=== PATIENT | male | born 1955 | race Caucasian/White ===

== ENCOUNTER → 2017-12-01 | Outpatient (CLI) | payer OTHER ==
[~2017-12-01] VITALS: Ht 182.9 cm; Wt 91.4 kg
[~2017-12-01] MED LIST: CARDIZEM CD240 MG PO; COZAAR 50 MG TA50 M2 PO; CRESTOR10 MG PO; FLECAINIDE ACET50 M1 PO; FLOMAX0.4 MG PO; GABAPENTIN 100100 MG PO; GABAPENTIN100 MG PO; KLOR-CON 1010 MEQ PO; MEDROL DOSPAK21 TAB PO; PREDNISONE 20 M20 MG PO; TRAMADOL 50 MG50 MG PO; XARELTO20 MG PO
--- NOTE | ~2017-12-01 | HPC ---
[facility] [place] [address] PAIN MANAGEMENT CONSULTATION Name: MICHELE ZAPIEN JR Room #: REG [facility].#: [id number] Admission: 12/01/17 Attend Phys: Alden Vo MD Discharge: Date of : 51 Report #: [id number] THIS REPORT FOR: //name// CC: Gato Vo DATE OF SERVICE: 12/01/2017 CHIEF COMPLAINT: Acute onset of left lumbar radiculopathy. HISTORY OF PRESENT ILLNESS: This is a patient who was last seen in our clinic over 2 years ago. He responded beautifully to an epidural steroid injection performed for right lumbar radiculopathy. At that time, he showed disk extrusion at L3-L4 that was consistent with his findings. Today, he is here with about a 1-month history of back pain that begins in the lumbosacral region, radiates to the left hip and now follows the L3-L4, L4-L5 distribution into the left leg. He has noticed pain with sitting and with sleeping at night. He is ambulating with some antalgic features and has noticed that the pain at times can be intense. He has, however, remained active with functional exercise continuing with guarding and other issues. 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 Saw Dr. Oswald, who provided him with tramadol, gabapentin, and a prednisone burst and he has been taking 20 mg once a day. Tramadol has been helpful as well as gabapentin at low dose 100-200 mg t.i.d. MEDICATIONS: Include Tambocor, prednisone, Neurontin, tramadol, Flomax, Crestor, Klor-Con, Cozaar, Cardizem, Xarelto. ALLERGIES: None. PAST MEDICAL HISTORY: Positive for atrial fibrillation. He has been treated with number of medicines and is under the care of Dr. Fracisco Yun at the [facility] at . He takes Xarelto because of intermittent atrial fibrillation. He has been in sinus rhythm for some time. I have asked him to discuss with Dr. Yun about discontinuing his Xarelto for 3 days in anticipation of an epidural injection. Has some osteoarthritis involving the knee. PAST SURGICAL HISTORY: Include tonsillectomy in 1954, appendectomy in 1965. SOCIAL HISTORY: Denies use of tobacco. [place] drinks [place] [address] PAIN MANAGEMENT CONSULTATION Name: MICHELE ZAPIEN Room #: REG [facility]#: [id number] Admission: 12/01/17 Attend Phys: Alden Vo MD Discharge: Date of : 51 Report #: [id number] once or twice daily. He is an director life insurance. PHYSICAL EXAMINATION: Pleasant, alert and oriented, well groomed, well dressed. His blood pressure is 106/84, heart rate 75, respirations 16. BMI is 27.3. He is able to move from sitting to standing independently without the use of his arms. He has ability to ambulate, but has a slight antalgic gait. He has pain across his low back pain. Forward flexion and extension. Straight leg raising on the right. He has negative straight leg raising on the left and the sitting and supine position reproduces pain in the L4-L5 distribution and L5-S1. Sensation is intact. No focal weakness. Deep tendon reflexes are 2+ knees and ankles. MRI scan is reviewed from 2 years ago and I would like to avoid getting another study if we can. It all depends on how he responds to an epidural injection. IMPRESSION: Low back pain with radiculopathy. PLAN: I will stop his Xarelto off. We will get a preauthorization from his insurance company and bring him back in clinic in 72 hours for an epidural. I have asked him to utilize tramadol and gabapentin sparingly as needed for pain and I have given him 2 new prescriptions. He would like to avoid medication and that is certainly one of the goals of this treatment with the epidural. We talked about the importance of exercise once again. May require a course of physical therapy. By: [id number] Alden Vo MD /nt
[2017-12-01 14:38] VITALS: BP 106/84
== END ==
LOC: PAIN 07:40
DX: M54.5 Low back pain (principal); M54.16 Radiculopathy, lumbar region

== ENCOUNTER → 2017-12-04 | Outpatient (CLI) | payer OTHER ==
[~2017-12-04] VITALS: Ht 182.9 cm; Wt 89.8 kg
--- NOTE | ~2017-12-04 | HPC ---
[facility] [place] [address] PAIN MANAGEMENT CONSULTATION Name: MICHELE ZAPIEN Room #: REG [facility]#: [id number] Admission: 12/04/17 Attend Phys: Alden Vo MD Discharge: Date of : 51 Report #: [id number] THIS REPORT FOR: //name// CC: Gato DAHL MD DATE OF SERVICE: 12/04/2017 The patient returns today for epidural steroid injection. He has been off his Xarelto now for over 72 hours. Please refer to dictation from earlier this week. Pain is on the left, follows in the L5 distribution. MRI shows disk injury at L4-L5 and he was treated previously for symptoms that were on the right. His pain today is bilateral, but mostly on the left. There have been no changes over the last couple of days, except the discontinuation of his blood thinner. Pain intensity is 9/10. PHYSICAL EXAMINATION: VITAL SIGNS: Blood pressure is 147/78, heart rate 63, respirations 18. EXTREMITIES: Antalgic gait. Positive straight leg raising on the left is noted. IMPRESSION: Lumbar radiculopathy, L4, L5 and S1 on the left, related to an L4-L5 disk protrusion documented by MRI. PROCEDURE: Epidural steroid injection, L4-L5, left paramedian under fluoroscopic guidance. DESCRIPTION OF PROCEDURE: Skin was prepped with ChloraPrep. Skin anesthetized over L4-L5. A 20-gauge Tuohy epidural needle was advanced in the epidural space using loss of resistance technique. There was no blood or CSF aspirated. A 1 mL of Omnipaque demonstrated excellent spread along the lateral recess. It was then followed by 3 mL of 0.5% lidocaine mixed with 80 mg of triamcinolone. He tolerated the procedure well, was observed for 45 minutes and discharged. Follow up with the pain clinic on an as-needed basis. By: [id number] Alden Vo MD /nt
[2017-12-04 08:56] VITALS: BP 147/78
== END | disposition home or self-care (01) ==
LOC: PAIN 06:44
DX: M54.16 Radiculopathy, lumbar region (principal); G89.29 Other chronic pain; Z79.899 Other long term (current) drug therapy

== ENCOUNTER → 2017-12-25 | Outpatient (CLI) | payer OTHER ==
[~2017-12-25] VITALS: Ht 182.9 cm; Wt 90.0 kg
--- NOTE | ~2017-12-25 | HPC ---
[facility] [address] [address] [place] [address] PAIN MANAGEMENT CONSULTATION Name: MICHELE ZAPIEN JR Room #: REG [facility].#: [id number] Admission: 12/25/17 Attend Phys: Alden Vo MD Discharge: Date of : 51 Report #: [id number] THIS REPORT FOR: //name// CC: Gato Vo DATE OF SERVICE: 12/25/2017 HISTORY OF PRESENT ILLNESS: Followup visit for persistent left low back pain with radiation through the left leg to the anterior lateral thigh with numbness. The patient returns to pain clinic today after an epidural injection performed in a left paramedian position at L4-L5. I have reviewed the injection, shows excellent spread of dye along the lateral recess. It covered the L4, L3 and L5 nerve roots very effectively. We have an old MRI showing a disk protrusion at L4-L5. I would expect this injection to at least provide some temporary relief, which it did not. He is here today for further considerations. His pain is worse with sitting. Driving is particularly difficult. He describes it as a charley horse sensation in his leg and in his midback. Numbness is a persistent complaint and the numbness extends only to the lateral thigh, but no further. He has some tramadol, but has been reluctant to take it. He is also on tramadol. He discontinued it in anticipation of a possible injection today, but we discussed whether or not we had a good idea of where we would inject him. I have some diagnostic considerations. PHYSICAL EXAMINATION: GENERAL: He is a pleasant, alert and oriented. He moves easily from sitting to standing position. There are no obvious antalgic features to his gait. VITAL SIGNS: His blood pressure 126/70, heart rate 62. His BMI is 26.9. MUSCULOSKELETAL: He has no pain with range of motion of the lumbar spine. Golf swing is performed without too much discomfort. He has tenderness along his iliac crest and above, but not along the spine. There is no spinal pain with extension. Straight leg raising is negative at this time for radicular pain. Internal and external rotations of the hip are performed without discomfort. Deep tendon reflexes are symmetrical bilaterally at the knees and ankles with no evidence of hyper or hyporeflexia. Sensation to pinprick is diminished in the lateral cutaneous nerve distribution of the thigh. There is no focal weakness. IMPRESSION: Low back pain with radiation through the left hip into the lateral thigh with numbness. [address] [address] PAIN MANAGEMENT CONSULTATION Name: MICHELE ZAPIEN Room #: REG [facility]#: [id number] Admission: 12/25/17 Attend Phys: Alden Vo MD Discharge: Date of : 51 Report #: [id number] Diagnostic considerations include lumbar radiculopathy, possible hip arthropathy and I have also now raised the possibility of meralgia paresthetica. He does have numbness without weakness and pain along the lateral thigh associated with sitting, particularly with riding in a car. Perhaps it is the seatbelt of the car that causes this pain, I am not sure if there is an entrapment syndrome there. Diagnostic injection of the lateral femoral cutaneous nerves consider today. We have decided to proceed first with another MRI of his lumbar spine and an MRI including the pelvis. He has lumbar radiculopathy, worsening with a disk bulge previously at L4-L5. Followup visit is planned after reports of the MRI. I will add him on for an injection on 01/08, but we need a precertification. I cannot precert him precisely at this time for an epidural injection and would consider the possibility of a lateral femoral cutaneous nerve block or a hip injection depending on our MRI responses. A 25-minute consultation. By: [id number] Alden Vo MD /nt
[2017-12-25 10:11] VITALS: BP 126/70
== END ==
LOC: PAIN 07:05
DX: M54.16 Radiculopathy, lumbar region (principal); M54.5 Low back pain; M25.552 Pain in left hip; R20.0 Anesthesia of skin

== ENCOUNTER → 2018-01-01 | Outpatient (CLI) | payer OTHER | LOC: MRI 08:24 | DX: S33.5XXA Sprain of ligaments of lumbar spine, initial encounter (principal); M48.062 Spinal stenosis, lumbar region with neurogenic claudication; X58.XXXA Exposure to other specified factors, initial encounter; Y93.89 Activity, other specified; Y92.89 Other specified places as the place of occurrence of the external cause; Y99.8 Other external cause status ==

== ENCOUNTER → 2018-01-08 | Outpatient (CLI) | payer OTHER ==
[~2018-01-08] VITALS: Ht 182.9 cm; Wt 89.5 kg
--- NOTE | ~2018-01-08 | HPC ---
[facility] [place] [address] PAIN MANAGEMENT CONSULTATION Name: MICHELE ZAPIEN Room #: REG [facility].#: [id number] Admission: 01/08/18 Attend Phys: Alden Vo MD Discharge: Date of : 51 Report #: [id number] THIS REPORT FOR: //name// CC: Fortunato Vo DATE OF SERVICE: 01/08/2018 Followup visit for lumbar radiculopathy. The patient returns to the Pain Clinic today having symptoms mostly in the L4-L5 distribution. An MRI scan that I obtained showed that there is a focal disk protrusion on the ipsilateral side at L2-L3 impinging upon the L2 nerve root. There is also evidence that this extends into the lateral recess. I have injected him previously, but I have injected him much lower at L4-L5. I have told him that today, I would like to inject him at the level of the offending disk and see if this provides better relief. He had planned on taking a trip, but this has been canceled due to a sudden arrest of his [id number], who is still in the hospital. PHYSICAL EXAMINATION: Shows blood pressure of 142/72, heart rate 58, respirations 16. Small antalgic gait. Positive straight leg raising noted on the left in the distribution of L4. IMPRESSION: Low back pain with radiculopathy. Old MRI showed a disk protrusion at L4-L5, but now there seems to be more prominent disk at the L2-L3 level on the ipsilateral side. RECOMMENDATION: Epidural steroid injection L2-L3 under fluoroscopic guidance. PROCEDURE: He was taken to fluoroscopic suite, placed prone. Skin prepped with ChloraPrep. Skin anesthetized over the L2-L3 interspace. A 20-gauge Tuohy epidural needle advanced first attempt in the epidural space with loss of resistance technique. There was no blood or CSF aspirated. 1 mL of Omnipaque injected with nice spread of dye observed along the left lateral recess. It was then followed by 3 mL of 0.5% lidocaine mixed with 80 mg of triamcinolone. He tolerated the procedure well, was observed for 45 minutes, and followup visit is planned as needed. By: [id number] Alden Vo MD /nt
[2018-01-08 08:57] VITALS: BP 142/72
== END | disposition home or self-care (01) ==
LOC: PAIN 06:08
DX: M54.16 Radiculopathy, lumbar region (principal); G89.29 Other chronic pain; Z79.899 Other long term (current) drug therapy

== ENCOUNTER → 2018-11-09 | Outpatient (CLI) | payer OTHER ==
[~2018-11-09] VITALS: Ht 185.4 cm; Wt 90.8 kg
[~2018-11-09] MED LIST changes: +COQ-10100 MG PO; +LOSARTAN POTASS50 MG PO
--- NOTE | ~2018-11-09 | HPC ---
[facility] [place] [address] PAIN MANAGEMENT CONSULTATION Name: MICHELE ZAPIEN JR Room #: REG [facility].#: [id number] Admission: 11/09/18 ������������������ Attend Phys: Alden Vo MD Discharge: ������������������ Date of : 51 Report #: [id number] THIS REPORT FOR: //name// CC: Fortunato Vo DATE OF SERVICE: 11/09/2018 REASON FOR VISIT: A 25-minute consultation visit with followup for persistent and recurring right hip pain. HISTORY OF PRESENT ILLNESS: The patient returns to the pain clinic today complaining of pain in the right hip. The pain is different than previous pains, which have been more radicular in description. He has had pain on the left, which has responded nicely to injection. This current pain is right-sided and well localized in the upper gluteal region. He describes it as sharp, stabbing pain. At times, it is so severe that he can barely move. He scores it as a 7/10. It is episodic and definitely related to activity. He has found that ibuprofen is helpful, but he is not allowed to take it on a regular basis due to concurrent use with Xarelto. He has tried some [place] massage and found it to be temporarily helpful. CURRENT MEDICATIONS: Gabapentin 100 mg 3 times daily, tramadol 3 times daily p.r.n., flecainide, tamsulosin, rosuvastatin, losartan, diltiazem and Xarelto for history of atrial fibrillation. ALLERGIES: None. PHYSICAL EXAMINATION: He is 6 feet 1 inch, weight 200 pounds and BMI of 26.4. Blood pressure 134/79, heart rate 62 and respirations 16. He moves easily from sitting to standing position. His gait is mildly antalgic. He has localized tenderness in the upper gluteal region. He has pain with both internal and external rotation of the right hip. Straight leg raising is mildly positive, radiating pain also into the hip but not much further down into the leg. Strength and sensation are within normal limits bilaterally to the lower extremities. Deep tendon reflexes are 2+. RADIOLOGICAL DATA: X-rays have been reviewed, which demonstrate from the right hip moderate right hip degenerative osteoarthritis and a degenerative tear of the right anterior labral superior hip labrum. That x-ray was performed in 2014. Because of concerns of the right hip and pelvis I repeated an MRI in December of 2017. 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 There were also cystic changes along the labral acetabular junction bilaterally with paralabral cyst most [address] [address] PAIN MANAGEMENT CONSULTATION Name: MICHELE ZAPIEN Room #: REG [facility].#: [id number] Admission: 11/09/18 ������������������ Attend Phys: Alden Vo MD Discharge: ������������������ Date of : 51 Report #: [id number] prominent on the left contralateral side. He does not have pain on that side. There was minimal fluid noted along the dorsal subcutaneous tissues at the sacrococcygeal junction, felt to represent benign subcutaneous pressure fluid in that location. There were no findings of piriformis injury. No findings of soft tissue bursitis or acute injury around the hip itself. He has a focal disk protrusion at L2-L3 impinging upon the left L2 nerve root resulting in severe left neural foraminal stenosis. He was treated for lumbar radiculopathy of this location successfully in May. PLAN: I would like him to see Dr. Aguayo, his college and good friend. He can assess his x-rays and physical exam to see if he believes this may be hip related. We discussed his favorable response to nonsteroidal anti-inflammatory drug, which should suggest that this may be an arthropathy, which responds best to those medications. Because of his use of Xarelto for atrial fibrillation, he should be very cautious about using NSAID on a regular basis. I have given him a trial of Celebrex to be used on an intermittent p.r.n. basis as this may be somewhat safer than a traditional NSAID. A followup is scheduled after his referral to Dr. Aguayo. I will talk to Dr. Aguayo we can discuss whether or not a diagnostic hip injection may be helpful in determining next steps. There is some possibility that this could be radiculopathy as well. ��������������������������������������������� ���������������������������������������� By: ��������������������������������������������� [id number] [id number] Alden Vo MD /nt
[2018-11-09 09:12] VITALS: BP 134/79
--- NOTE | 2018-11-09 09:30 | NUR ---
Pain Clinic Assessment: 1. History of Osteoarthritis: NONE History of Rheumatoid Arthritis: NONE 2. Height: 6 ft. 1 in. 185.4 cm. Weight: 200.2 lb. oz. 90.810 kg. Patient's BMI: 26.4 3. Vital Signs: BP: 134/79 Pulse: 62 Resp: 16 Temp: 02 Sat: 100 ECG Mon: 4. Pain Intensity: 7-8 5. Fall Risk: Dizziness: N Needs help standing or walking: N Fallen in the last 3 months: N Fall risk comments: 6. Patient on Blood Thinner: XARELTO 7. History of Hypertension: N 8. Opioid Therapy greater than 6 weeks: N Opiate Contract Signed: 9. Risk Assessment Tool Provided: 0-low risk 10. Functional Assessment Tool: 11. Recreational Drug Use: Never Drug Type: Tobacco Use: Never Smoker Tobacco Type: Amount or Packs/day: How Many Years: Alcohol Use: Yes Frequency: Quant:
== END ==
LOC: PAIN 06:42
DX: M16.0 Bilateral primary osteoarthritis of hip (principal); S73.191D Other sprain of right hip, subsequent encounter; Z79.899 Other long term (current) drug therapy; Z79.891 Long term (current) use of opiate analgesic; X58.XXXD Exposure to other specified factors, subsequent encounter

== ENCOUNTER → 2018-12-07 | Outpatient (CLI) | payer OTHER ==
[~2018-12-07] VITALS: Ht 185.4 cm; Wt 90.4 kg
--- NOTE | ~2018-12-07 | HPC ---
[facility] [place] [address] PAIN MANAGEMENT CONSULTATION Name: MICHELE ZAPIEN JR [facility] [id number] Admission: 12/07/18 ������������������ Attend Phys: Alden Vo MD Discharge: ������������������ Date of : 51 Report #: [id number] THIS REPORT FOR: //name// CC: Gato Vo DATE OF SERVICE: 12/07/2018 Followup visit for pain in the right lower back, right hip and radiation to the right anterior lateral thigh. The patient returns to pain clinic today and seen Dr. Aguayo. Dr. Aguayo was kind enough to send his consultation directly to our clinic and I was able to review his assessment. Dr. Aguayo feels as I do that there may be likely 2 pain generators, his low back and pain related to degenerative arthritis of the right hip. Dr. Aguayo did not feel that the hip was bad enough to warrant hip replacement and there is some diagnostic component that may need to be ferreted out between these 2 pain generators. He discussed in his note injections of both the hip as well as a spine therapeutic and diagnostic option. I reviewed those options with the patient again today in the clinic. Today, he complains again of similar pain at a level of 6-7/10. Pain radiates from his back through his right hip and down into the anterolateral thigh. Pain is worse with prolonged standing. He is able to walk some distances and in fact last week was at the [employer] and was able to walk the course with only modest pain. MEDICATIONS: Include the blood thinner, Xarelto, which was discontinued for 72 hours in anticipation of an epidural injection today; diltiazem; rosuvastatin; tamsulosin; flecainide; losartan, CoQ10 and tramadol 50 mg q. 6 hours p.r.n. PHYSICAL EXAMINATION: GENERAL: Pleasant 63-year-old gentleman. VITAL SIGNS: Blood pressure 117/66, heart rate 70, respirations 16. MUSCULOSKELETAL: Pain across the low back, positive straight leg raising on the right. Some pain with internal and external rotation of the hip. Pain stays mostly above the popliteal fossa and the knee and does not extend down his lower leg. Normal deep tendon reflexes and sensation. Normal strength. IMPRESSION: 1. Low back pain with radiculopathy at L3-L4 distribution on the right. 2. Right hip arthropathy with some component of contribution to his chronic pain. [address] [address] PAIN MANAGEMENT CONSULTATION Name: MICHELE ZAPIEN Room #: REG CLI [facility]#: [id number] Admission: 12/07/18 ������������������ Attend Phys: Alden Vo MD Discharge: ������������������ Date of : 51 Report #: [id number] RECOMMENDATION: Epidural steroid injection, L3-L4 under fluoroscopic guidance. DESCRIPTION OF PROCEDURE: He was taken to fluoroscopic suite, placed prone, skin prepped with ChloraPrep. Skin anesthetized over the L3-L4 to the right of midline. A 20-gauge Tuohy epidural needle advanced in the epidural space in first attempt using loss of resistance. There was no blood or CSF aspirated. A 1 mL of Omnipaque injected. Good spread of dye observed in the epidural space followed by 3 mL of 0.5%, lidocaine mixed with 80 mg of triamcinolone. He tolerated the procedure well and was observed for 45 minutes and discharged. Follow up as needed. ��������������������������������������������� ���������������������������������������� By: ��������������������������������������������� [id number] Alden Vo MD /nt
[2018-12-07 13:40] VITALS: BP 117/66
--- NOTE | 2018-12-07 13:51 | NUR ---
Pain Clinic Assessment: 1. History of Osteoarthritis: NONE History of Rheumatoid Arthritis: NONE 2. Height: 6 ft. 1 in. 185.4 cm. Weight: 199.2 lb. oz. 90.357 kg. Patient's BMI: 26.3 3. Vital Signs: BP: 117/66 Pulse: 70 Resp: 16 Temp: 02 Sat: 98 ECG Mon: 4. Pain Intensity: 6-7 5. Fall Risk: Dizziness: N Needs help standing or walking: N Fallen in the last 3 months: N Fall risk comments: 6. Patient on Blood Thinner: XARELTO 7. History of Hypertension: N 8. Opioid Therapy greater than 6 weeks: N Opiate Contract Signed: 9. Risk Assessment Tool Provided: 0-low risk 10. Functional Assessment Tool: 11. Recreational Drug Use: Never Drug Type: Tobacco Use: Never Smoker Tobacco Type: Amount or Packs/day: How Many Years: Alcohol Use: Yes Frequency: Daily Quant: 2 A DAY
== END | disposition home or self-care (01) ==
LOC: PAIN 06:58
DX: M54.16 Radiculopathy, lumbar region (principal); G89.29 Other chronic pain; M12.851 Other specific arthropathies, not elsewhere classified, right hip; Z79.899 Other long term (current) drug therapy